=== PATIENT | female | born 1940 | race Caucasian/White ===

== ENCOUNTER 2017-04-30 10:23 | Outpatient (CLI) | payer MEDICARE ==
--- NOTE | 2017-04-30 14:40 | CT ---
CT OF ABDOMEN AND PELVIS PERFORMED WITH INTRAVENOUS CONTRAST ENHANCEMENT: Date: 04/30/17 COMPARISON: 08/26/16. HISTORY: Patient has had abdominal pain for a long time. Daughter reports an incomplete colonoscopy, but the time frame of that is unclear. TECHNIQUE: 60 mL of Isovue-370 administered for this exam. FINDINGS: There is a moderate left-sided pleural effusion present. No right-sided effusion is seen. There are subsegmental atelectatic changes in the lung bases and there is a moderate hiatal hernia noted. The liver and spleen are normal in size and appearance. Just anterior to the junction of the head an d body region of the pancreas is a small fluid density collection. It measures approximately 2.7 cm in size. There is ascites identified in the abdomen. I am not certain if this may just represent bala e loculated ascites, although it is possibly retroperitoneal given its location. Right and left adrenal glands, and right and left kidneys are normal in size. There is no significan t periaortic or mesenteric adenopathy. There is gaseous distention of the right colon, transverse and descending colon to the level of the junction with the sigmoid where there is a fairly abrupt transition to more normal caliber colon wit hout a definite mass. There is diverticular disease in the sigmoid colon, which is more centered at this area, with a fairly large diverticulum seen in this area, but I do not see signs that would sug gest perforation. There is some pericolonic fat stranding adjacent to the sigmoid colon. In addition , the colon wall appears thickened diffusely, even considering the gaseous distention of the colon. There is evidence of a pancolitis on the previous exam. CT of pelvis was performed with contrast enhancement. There is air present within the bladder, presu mably this is related to catheterization. No significant adenopathy, mass, or free fluid. Bilateral hip prostheses are present. Marked arthritic changes of the spine are noted. IMPRESSION: 1. There is gaseous distention of the colon to the level of the junction of the descending and colo n where there is a fairly abrupt transition to more normal caliber sigmoid. There is diverticular di sease in this area. I do not see a definite obstructing mass. There is some pericolonic fat strandin g seen adjacent to the sigmoid colon which could indicate there is some element of diverticulitis, b ut these changes were present on the prior exam and may also be more chronic in nature. Once again, diffuse colon wall thickening is seen compatible with colitis changes which may be chronic in this p atient. There is some ascites noted which is more prominent than the prior exam. 2. Moderate left-sided pleural effusion. 3. Hiatal hernia. 4. Other findings as noted above. POS: OFF
== END 2017-04-30 10:24 | disposition home or self-care (01) ==
LOC: SCSCT 10:23
PROVIDERS: ATTEND Internal Medicine Gastroenterology
DX: R10.9 Unspecified abdominal pain (principal); R18.8 Other ascites; R14.0 Abdominal distension (gaseous); J90 Pleural effusion, not elsewhere classified; K44.9 Diaphragmatic hernia without obstruction or gangrene
CPT/HCPCS: 74177

== ENCOUNTER 2017-06-18 08:45 | Inpatient (IN) | payer MEDICARE ==
[2017-06-29] MEDS ORDERED: Midazolam HCl 2 mg/2 ml Vial ONE (06:20)
[2017-06-29] MEDS ORDERED: Dexamethasone 4 mg/ml Vial ONE (06:20)
[2017-06-29] MEDS ORDERED: Fentanyl 100 MCG/2 ML VIAL ONE ×2 (06:20→07:31)
[2017-06-29] MEDS ORDERED: CEFAZOLIN/Water 2 GM/20 ML SYRINGE ONE (06:26)
[2017-06-29] MEDS ORDERED: cefOXitin Sodium 2 GM, Syringe 1 ML in Sterile Water 10 ML SLOW IVP ONE (06:45)
[2017-06-29] MEDS ORDERED: Bupivacaine/Epinephrine 0.25% 30 ML VIAL ONE (06:52)
[2017-06-29] MEDS ORDERED: Scopolamine 1.5 mg/72 hour Patch ONE (08:42)
[2017-06-29] MEDS ORDERED: Post-Op Insulin Drip Protocol IVPB ONE (12:30)
[2017-06-29] MEDS ORDERED: Insulin Regular 300 UNITS/3 ML VIAL SC PRN ×2 (12:30→12:47)
[2017-06-29] MEDS ORDERED: Ondansetron HCl/PF 4 MG/2 ML Vial IVP PRN (12:30)
[2017-06-29] MEDS ORDERED: hydrALAZINE 20 MG/ML VIAL SLOW IVP PRN (12:30)
[2017-06-29] MEDS ORDERED: Fentanyl 100 MCG/2 ML VIAL SLOW IVP PRN ×2 (12:30)
[2017-06-29] MEDS ORDERED: Dextrose 5% in Water 1,000 ML IV PRN (12:47)
[2017-06-29] MEDS ORDERED: Dextrose 50% Abboject 50 ML SYRINGE SLOW IVP PRN (12:47)
[2017-06-29] MEDS: Acetaminophen 1,000 MG in Premix Bag 1 BAG IVPB SCH ×2 (15:43→22:36)
[2017-06-29] MEDS: Sodium Chloride 0.9% 1,000 ML IV SCH (15:43)
[2017-06-29] MEDS ORDERED: PHENYLEPHRINE-NS 100 MCG/ML 10 ML SYRINGE ONE (16:31)
[2017-06-29] MEDS ORDERED: Glycopyrrolate 0.2 MG/ML 5 ML SYRINGE ONE (16:31)
[2017-06-29] MEDS ORDERED: Propofol 200 MG/20 ML VIAL ONE (16:31)
[2017-06-29] MEDS ORDERED: Succinylcholine Chloride 20 MG/ML 10 ml SYRINGE FS ONE (16:31)
[2017-06-29] MEDS ORDERED: Ondansetron HCl/PF 4 MG/2 ML Vial ONE (16:31)
[2017-06-29] MEDS ORDERED: Dexamethasone 20 MG/5 ML VIAL ONE (16:31)
[2017-06-29] MEDS: cefOXitin Sodium 2 GM, Syringe 1 ML in Sterile Water 10 ML SLOW IVP SCH (17:16)
[2017-06-29] MEDS ORDERED: Famotidine/PF 20 mg/2ml Vial SLOW IVP SCH (21:00)
[2017-06-29] MEDS: Metoprolol Tartrate 100 MG TAB PO SCH (21:12)
[2017-06-29] MEDS: Famotidine 20 MG TAB PO SCH (21:12)
[2017-06-29] MEDS: Enoxaparin Sodium 40 MG/0.4 ML SYRINGE SC SCH (21:13)
[2017-06-30] MEDS: cefOXitin Sodium 2 GM, Syringe 1 ML in Sterile Water 10 ML SLOW IVP SCH (02:23)
[2017-06-30] MEDS: Acetaminophen 1,000 MG in Premix Bag 1 BAG IVPB SCH ×2 (04:23→09:39)
[2017-06-30] MEDS: Sodium Chloride 0.9% 1,000 ML IV SCH (04:24)
[2017-06-30 05:17] LABS: #Eosinphils 0.1 thou/uL (0.0-0.7); #Lymphocytes 1.6 thou/uL (1.20-3.40); #Monocytes 0.7 thou/uL (0.11-0.59); #Neutrophils 8.5 thou/uL (1.40-6.50); %Basophils 0.1 % (0.0-1.0); %Eosinophils 1.1 % (0.0-10.0); %Lymphocytes 14.7 % (21.0-51.0); Hematocrit 28.8 % (36.0-47.0); Mean Platelet Volume 6.7 fL (7.4-10.4); Red Blood Cell (RBC) Count 3.52 mill/uL (4.20-5.40); White Blood Cell (WBC) Count 10.8 thou/uL (4.8-10.8)
[2017-06-30 05:36] LABS: Anion Gap 13 mmol/L (10-20); BUN (Urea Nitrogen) 18 mg/dL (9.8-20.1); Calc. Creatinine Clearance 33 mL/min (70-130); Calcium 7.4 mg/dL (7.8-10.44); Carbon Dioxide 22 mmol/L (23-31); Chloride 104 mmol/L (98-107); Estimated GFR-MDRD 26
--- NOTE | 2017-06-30 08:34 | OP ---
DATE OF PROCEDURE: 06/30/2017 PREOPERATIVE DIAGNOSIS: Left colon mass. POSTOPERATIVE DIAGNOSIS: Postoperative obstructing colon mass. PROCEDURES PERFORMED: Sigmoid colectomy with mobilization of splenic flexure, end colostomy, rectal stump left stapled off. SURGEON: Dr. Schafer. ANESTHESIA: General. ESTIMATED BLOOD LOSS: 200 mL COMPLICATIONS: None. FINDINGS: The colon is significantly distended and partially ischemic from the obstructive process o f the sigmoid colon. The colon is so distended and chronically obstructed, it was deemed unsafe for anastomosis even with diversion. The decision was made to divert proximally with an end colostomy. INDICATION: The patient is a 77-year-old female who presents with an obstructing mass in the left co reese, had a colonoscopy by Dr. Barahona. She underwent cardiac clearance, she underwent attempted pr eop colon prep. She had some difficulty with the prep and did vomit on the morning of surgery. Preo perative tap blocks were performed by Anesthesia. DESCRIPTION OF PROCEDURE: The patient was taken to the operating room and laid supine on the operati ng room table. After general anesthetic was obtained, a Carmona is placed. The abdomen was prepped an d draped in a sterile fashion. Left subcostal 5-mm Optiview trocar was placed in the usual fashion a nd high-flow pneumoperitoneum was obtained. A 5 mm camera port was placed at the umbilicus and a 5 m m assist port was placed in the right lower quadrant. The patient's cecum is so distended, it is hai ling the whole pelvis, it is not able to be moved out of the way, in fact the whole colon is so signi ficantly distended that makes laparoscopy not possible. Decision was made to open midline incision, it was made above the umbilicus towards the xiphoid all the way down towards the pubis. Bookwalter r etractor was placed. Left colon mobilized along the white line of Toldt. Significant inflammatory c hange in the area of the sigmoid colon, lateral dissection was difficult, so a medial to lateral diss ection of the mesentery was performed. The left ureter was found and excluded from the dissection. The lateral attachments were then taken. The peritoneum was opened and the posterior mesentery taken all the way down to the upper rectum. A laparoscopic stapling device was fired across the upper rec isael. The colon was then flipped up and the splenic flexure was mobilized in the usual fashion, there is some difficulty with this given the significant distention of the proximal colon. Again, the le ft ureter was found and excluded from the dissection. The greater omentum was taken off of the dista l transverse colon to allow for further mobilization. Just distal to the splenic flexure, a reload o f the stapler was fired across the colon. The colon specimen was marked distally and sent to path fo r final diagnosis. An ellipse of skin was taken out in the left abdomen and a cruciate incision was made in the fascia and the colon, so was able to be brought up through this incision, this would be t he location of the colostomy. There was no bleeding in the abdomen. The abdomen was irrigated using sterile solution until returns are clear. The fascia was closed using PDS from the top and the dolores om and tied in the middle. The surgeon and school health assistant and scrub, all changed gown and gloves. The mi dline incision was irrigated using 3 liters of Pulsavac saline. The midline incision was closed usin g 3-0 Vicryl, 4-0 Monocryl, and Dermabond. The other laparoscopic port sites were closed using 4-0 M onocryl and Dermabond. The end colostomy was then matured in the usual fashion using 3-0 Vicryl sutu res. A large ostomy device was placed. Please note that a Prolene suture had been placed to tack th e rectal stump below prior to closing the abdomen. All instrument counts, needle counts, and lap cou nts were correct. The patient was en route to recovery in stable condition.
[2017-06-30] MEDS: Famotidine 20 MG TAB PO SCH ×2 (09:39→20:11)
[2017-06-30] MEDS: Metoprolol Tartrate 100 MG TAB PO SCH ×2 (09:39→20:11)
--- NOTE | 2017-06-30 11:14 | PRG ---
DATE OF SERVICE: 06/30/2017 Postop day #1 left colectomy with colostomy. Ms. Ibarra is doing well. Her pain is controlled. She tried to stand last night, but had some dizz iness. She feels better this morning. She is tolerating the clear liquids without difficulty. PHYSICAL EXAMINATION: VITAL SIGNS: She is afebrile. Vital signs are stable. Urine output is adequate. ABDOMEN: Her abdomen is soft, minimally distended. Colostomy intact in left upper quadrant with air and stool in the bag. LABORATORY: White blood cell count is 10, hemoglobin 9. Sodium 136, potassium 3.1, creatinine 1.85, that is up from 1.5 preoperative. Sugars remain in the mid to low 100s with the exception of one sug ar over 200, 239 this morning. ASSESSMENT: Postop day #1 left colectomy with colostomy. PLAN: Transfer to surgical floor. Case management to work on shelter, likely ready to go [facility] on Wednesday.
[2017-06-30] MEDS: 1/2 NS w/KCL 20 mEq 1,000 ML IV SCH ×2 (12:54→14:56)
[2017-06-30 14:13] VITALS: BMI 29.9
[2017-06-30] MEDS: Enoxaparin Sodium 40 MG/0.4 ML SYRINGE SC SCH (20:10)
[2017-07-01] MEDS ORDERED: HYDROcodone/Acetaminophen 10/325 mg Tablet PO PRN ×2 (06:07)
[2017-07-01] MEDS: Famotidine 20 MG TAB PO SCH ×2 (10:11→20:31)
[2017-07-01] MEDS: Metoprolol Tartrate 100 MG TAB PO SCH ×2 (10:11→20:31)
[2017-07-01] MEDS ORDERED: Ondansetron ODT 4 MG TAB SL PRN (17:08)
--- NOTE | 2017-07-01 17:44 | PRG ---
DATE OF SERVICE: 07/01/2017 SUBJECTIVE: Postop day #2, left colectomy, colostomy. Ms. Ibarra is doing well, her IV came out, b ut she is tolerating her full liquids. She is having plenty of stool come in to her bag. She stood, but sat on the chair, but not any ambulation yet. OBJECTIVE: VITAL SIGNS: She is afebrile. Vital signs are stable. ABDOMEN: Her incision is healing well. ASSESSMENT: Postoperative day #2, left colectomy and colostomy. PLAN: To correction tomorrow. We will advance to a GI soft diet for breakfast tomorrow.
[2017-07-01] MEDS: TROSPIUM 20 MG TABLET PO SCH (20:31)
[2017-07-01] MEDS: Enoxaparin Sodium 40 MG/0.4 ML SYRINGE SC SCH (20:31)
[2017-07-01] MEDS ORDERED: Donepezil HCl 10 MG TAB PO SCH (21:00)
[2017-07-01] MEDS ORDERED: Gabapentin 300 MG CAP PO SCH (21:00)
[2017-07-01] MEDS ORDERED: Melatonin 3 MG TAB PO SCH (21:00)
[2017-07-01] MEDS: 1/2 NS w/KCL 20 mEq 1,000 ML IV SCH (23:04)
[2017-07-02] MEDS ORDERED: Levothyroxine Sodium 50 MCG TAB PO SCH (06:00)
[2017-07-02 08:26] VITALS: TEMP 98.4
[2017-07-02] MEDS ORDERED: Amlodipine 10 MG TAB PO SCH (09:00)
[2017-07-02] MEDS: Metoprolol Tartrate 100 MG TAB PO SCH (09:03)
[2017-07-02] MEDS: Famotidine 20 MG TAB PO SCH (09:03)
--- NOTE | 2017-07-02 11:00 | DIS ---
DATE OF ADMISSION: 06/29/2017 DATE OF DISCHARGE: 07/02/2017 ADMIT DIAGNOSIS: Left colon mass. DISCHARGE DIAGNOSIS: Left colon mass. PROCEDURES: Left colectomy, open with end colostomy by Dr. Schafer for complete obstruction of left colon at this mass by Dr. Schafer without complication. CONDITION AT DISCHARGE: Improved. STAFF: Dr. Schafer. HOSPITAL COURSE: Patient was admitted to postop floor on a clear liquid diet and her pain was well c ontrolled. Her physical activity has been limited even before surgery, decision was made to [facility], case management started working on that. She did have some colostomy teaching joseph t I will continue at intermediate. On the day of discharge, she is doing well. Her vital signs a re stable. Her abdomen is soft. Her wound is healing well. ASSESSMENT: Discharged to intermediate on a GI soft diet for now, continue colostomy teaching PT, OT. She is okay to shower, because she has got Super Glue on her incision. Does not need any more antibiotics.
[2017-07-02 11:35] VITALS: BP 132/70
[2017-07-02] MEDS: TROSPIUM 20 MG TABLET PO SCH (11:52)
== END 2017-07-02 12:15 | disposition swing bed (61) | DRG 330 ==
LOC: SURG A 06-29 06:07 → UNDOADMIN 06-29 06:07 → SURG A 06-29 06:14 → IMCU/EMU 06-29 11:18 → SURG A 06-30 14:30
PROVIDERS: ADMIT Surgery; ATTEND Surgery
PROC: 0DTN0ZZ Resection of Sigmoid Colon, Open Approach (ICD-10-PCS; principal; 2017-06-30)
PROC: 0D1M0Z4 Bypass Descending Colon to Cutaneous, Open Approach (ICD-10-PCS; 2017-06-30)
PROC: 0DJD4ZZ Inspection of Lower Intestinal Tract, Percutaneous Endoscopic Approach (ICD-10-PCS; 2017-06-30)
PROC: 3E0T3BZ Introduction of Anesthetic Agent into Peripheral Nerves and Plexi, Percutaneous Approach (ICD-10-PCS; 2017-06-30)
PROC: 3E0T33Z Introduction of Anti-inflammatory into Peripheral Nerves and Plexi, Percutaneous Approach (ICD-10-PCS; 2017-06-30)
DX: K63.9 Disease of intestine, unspecified (principal); I50.32 Chronic diastolic (congestive) heart failure; E11.42 Type 2 diabetes mellitus with diabetic polyneuropathy; I11.0 Hypertensive heart disease with heart failure; D64.9 Anemia, unspecified; F32.9 Major depressive disorder, single episode, unspecified; K63.89 Other specified diseases of intestine; Z79.84 Long term (current) use of oral hypoglycemic drugs; M54.16 Radiculopathy, lumbar region; K21.9 Gastro-esophageal reflux disease without esophagitis; E78.5 Hyperlipidemia, unspecified; Z89.422 Acquired absence of other left toe(s); Z96.642 Presence of left artificial hip joint
CPT/HCPCS: 36415; 36416; 80048; 85025; 88307; A4216; G8978-GP-CK; G8979-GP-CI; G8987-GO-CL; G8988-GO-CJ; J0131; J0694; J1100; J1650; J2250; J2405; J2704; J3010

== ENCOUNTER 2017-06-18 09:11 | Outpatient (CLI) | payer MEDICARE ==
[2017-06-18 10:38] LABS: #Eosinphils 0.1 thou/uL (0.0-0.7); #Lymphocytes 1.6 thou/uL (1.20-3.40); #Monocytes 0.6 thou/uL (0.11-0.59); #Neutrophils 5.8 thou/uL (1.40-6.50); %Basophils 0.1 % (0.0-1.0); %Eosinophils 0.7 % (0.0-10.0); %Monocytes 7.1 % (0.0-10.0); Hematocrit 42.3 % (36.0-47.0); Mean Platelet Volume 6.9 fL (7.4-10.4); Red Blood Cell (RBC) Count 5.21 mill/uL (4.20-5.40)
[2017-06-18 10:52] LABS: Hemoglobin A1c 6.8 % (4.0-6.0)
[2017-06-18 11:01] LABS: Anion Gap 16 mmol/L (10-20); BUN (Urea Nitrogen) 15 mg/dL (9.8-20.1); Calc. Creatinine Clearance 0 mL/min (70-130); Calcium 9.4 mg/dL (7.8-10.44); Carbon Dioxide 24 mmol/L (23-31); Chloride 97 mmol/L (98-107); Estimated GFR-MDRD 35
== END 2017-06-18 09:12 | disposition home or self-care (01) ==
LOC: LABBT 09:11
PROVIDERS: ATTEND Surgery
DX: Z01.812 Encounter for preprocedural laboratory examination (principal); K63.9 Disease of intestine, unspecified
CPT/HCPCS: 80048; 83036; 85025

== ENCOUNTER 2017-10-08 16:39 | Emergency (ER) | payer MEDICARE ==
[2017-10-08 17:27] LABS: #Eosinphils 0.4 thou/uL (0.0-0.7); #Lymphocytes 1.7 thou/uL (1.20-3.40); %Basophils 0.4 % (0.0-1.0); %Eosinophils 4.4 % (0.0-10.0); %Lymphocytes 21.6 % (21.0-51.0); %Monocytes 11.9 % (0.0-10.0); %Neutrophils 61.8 % (42.0-75.0); Hemoglobin 7.8 g/dL (12.0-16.0); Mean Corpuscular HGB CONC 29.9 g/dL (32.0-36.0); Mean Corpuscular Hemoglobin 22.3 pg (27.0-31.0); Mean Corpuscular Volume 74.5 fl (81.0-99.0); Mean Platelet Volume 8.2 fL (7.4-10.4); Platelet Count 208 thou/uL (130-400); RBC Distribution Width 16.6 % (11.5-14.5); Red Blood Cell (RBC) Count 3.48 mill/uL (4.20-5.40)
[2017-10-08 17:48] LABS: INR-International Normal Ratio 1.1; PTT 34.2 SEC (22.9-36.1); Prothrombin Time 14.5 SEC (12.0-14.7)
[2017-10-08 17:49] LABS: ALT (SGPT) Less than 7 U/L (8-55); AST (SGOT) 9 U/L (5-34); Albumin 3.6 g/dL (3.4-4.8); Alkaline Phosphatase 69 U/L (40-150); Anion Gap 13 mmol/L (10-20); BUN (Urea Nitrogen) 23 mg/dL (9.8-20.1); Bilirubin, Total 0.2 mg/dL (0.2-1.2); Calc. Creatinine Clearance 0 mL/min (70-130); Calcium 8.7 mg/dL (7.8-10.44); Carbon Dioxide 23 mmol/L (23-31); Chloride 103 mmol/L (98-107); Estimated GFR-MDRD 28; Globulin 3.8 g/dL (2.4-3.5); Glucose 191 mg/dL (83-110); Potassium 3.9 mmol/L (3.5-5.1); Protein, Total 7.4 g/dL (6.0-8.3); Sodium 135 mmol/L (136-145)
[2017-10-08 19:27] LABS: Bilirubin Negative (Negative); Blood, Urine Negative (Negative); Clarity CLOUDY (Clear); Glucose, Urine (Dipstick) Negative (Negative); Leukocyte Large (Negative); Nitrite Negative (Negative); Protein, Urine (Dipstick) Negative (Neg-Trace); Specific Gravity, Urine 1.013 (1.002-1.036); Urobilinogen 0.2 mg/dL (0.2-1.0); pH, Urine 6.5 (5.0-9.0)
[2017-10-08 19:29] LABS: Bacteria/HPF 4+ HPF (None Seen); Hyaline Casts/LPF 4-6 HYALINE CAST LPF (0-3 Hyaline); Pathc Cast-AUWi Flag 1.16 (0-2.49); RBC/HPF 0-3 HPF (0-3); Squamous Epithelial 0-3 HPF (0-3)
[2017-10-08 19:35] LABS: Yeast-AUWi Flag 570.6 (0-25.0)
[2017-10-08 19:48] LABS: Yeast-All Forms 2+ HPF (None Seen)
--- NOTE | 2017-10-21 15:00 | EKG ---
Test Reason : Blood Pressure : / mmHG Vent. Rate : 073 BPM Atrial Rate : 073 BPM P-R Int : 176 ms QRS Dur : 084 ms QT Int : 414 ms P-R-T Axes : 041 011 106 degrees QTc Int : 456 ms Sinus rhythm with Fusion complexes Abnormal ECG Confirmed by HERIBERTO NO ([id number]), film editor JENNIFER RICHARDSON ([id number]) on 10/21/2017 3:00:09 PM Referred By: Confirmed By:HERIBERTO NO
== END 2017-10-08 20:52 ==
LOC: ERS 16:39
DX: D64.9 Anemia, unspecified (principal); N18.9 Chronic kidney disease, unspecified; E03.9 Hypothyroidism, unspecified; I11.0 Hypertensive heart disease with heart failure; I50.33 Acute on chronic diastolic (congestive) heart failure; F03.90 Unspecified dementia, unspecified severity, without behavioral disturbance, psychotic disturbance, mood disturbance, and anxiety; G47.00 Insomnia, unspecified; I25.10 Atherosclerotic heart disease of native coronary artery without angina pectoris; E11.9 Type 2 diabetes mellitus without complications; E78.5 Hyperlipidemia, unspecified; F41.9 Anxiety disorder, unspecified; F32.9 Major depressive disorder, single episode, unspecified; Z79.899 Other long term (current) drug therapy; Z79.82 Long term (current) use of aspirin
CPT/HCPCS: 36415; 51701; 80053; 81003; 81015; 82274; 85025; 85610; 85730; 86850; 86900; 86901; 87077; 87086; 87186; 93005; 96360; A4353